=== PATIENT | female | born 1980 | race Caucasian/White ===

== ENCOUNTER 2017-03-21 09:41 | Emergency (ER) | payer OTHER ==
[~2017-03-21 09:41] MED LIST: ALBUTEROL17 GM INH; AMITRYPTYLINE PO; BUSPAR PO; BUSPIRONE HCL10 MG PO; CLARITIN D PO; DELSYM30 MG/5 M1 PO; FLEXERIL10 MG PO; FLOMAX0.4 M1 PO; FLONASE 0.05% N16 G1 NS; HYDROCODONE/APA1 T16 PO; KEFLEX PO; LORTAB 5/500 TA1 TA1 PO; MEDROL DOSEPAK4 MG PO; MOTRIN600 MG PO; MUCINEX D ER T1 EAC1 PO; NO MEDICATIONS; ORUDIS75 M1 DOB; PHENERGAN25 M1 PO; PREDNISONE PO; PREDNISONE10 MG PO; PROZAC PO; PROZAC10 M1 PO; TRAMADOL HCL50 M1 PO; VOLTAREN50 MG PO; ZITHROMAX PO; ZOFRAN ODT4 MG/UDTAB PO
[2017-03-21] MEDS ORDERED: ZOLOFT PO (09:46)
[2017-03-21 10:08] LABS: URINE SOURCE CLEAN CATCH
[2017-03-21 10:12] LABS: URINE APPEARANCE HAZY; URINE BILIRUBIN NEG (NEG); URINE BLOOD NEG (NEG); URINE COLOR DK YELLOW; URINE GLUCOSE NEG (NORM); URINE KETONE NEG (NEG); URINE NITRATE NEG (NEG); URINE PROTEIN TRACE (NEG); URINE SPECIFIC GRAVITY 1.025 (1.003-1.035); URINE UROBILINOGEN 0.2 MG/DL (NORM)
[2017-03-21 10:15] LABS: MICRO INDICATED? YES
[2017-03-21 10:16] LABS: URINE LEUKOCYTE ESTERASE TRACE (NEG)
[2017-03-21 10:17] LABS: CULTURE INDICATED? YES; URINE BACTERIA 1+ (NEG); URINE MUCUS PRESENT; URINE RBC 0-2 /[HPF] (0-2); URINE SQUAMOUS EPITHELIAL CELL MODERATE /[HPF]
[2017-03-23 06:19] LABS: CHLAMYDIA TRACH Not Detected (Not Detected); N GONOR Not Detected (Not Detected)
== END 2017-03-21 12:06 | disposition home or self-care (01) ==
LOC: SED 09:41
PROVIDERS: Emergency Medicine; Nurse Practitioner
DX: N30.00 Acute cystitis without hematuria (principal); Z98.51 Tubal ligation status; F17.200 Nicotine dependence, unspecified, uncomplicated
CPT/HCPCS: 81003; 84703; 87086; 87210; 87491; 87591; 87808; 87905; 99284